=== PATIENT | male | born 1970 | race Hispanic/Latino ===

== ENCOUNTER 2017-09-07 07:24 | Outpatient (CLI) | payer OTHER ==
--- NOTE | 2017-09-07 13:55 | Nuclear Medicine Report ---
NUCLEAR MEDICINE WHOLE-BODY BONE SCAN: 09/07/17 CLINICAL: Right leg pain. COMPARISON: None. TECHNIQUE: 25.0 millicuries technetium 99m MDP was injected intravenously and whole body scans were obtained at 3 hours. FINDINGS: Normal distribution of radionuclide in the skeleton and soft tissues except for benign relatively symmetric uptake in the shoulders. No suspicious uptake. Normal activity in the right leg. IMPRESSION: Negative study.
== END 2017-09-07 07:25 | disposition home or self-care (01) ==
LOC: EDSEX 07:24 → NM 07:24
PROVIDERS: ATTEND Podiatrist Foot Surgery
DX: M79.604 Pain in right leg (principal)
CPT/HCPCS: 78306; A9503